=== PATIENT | female | born 1990 | race African-American/Black ===

== ENCOUNTER 2025-03-11 16:58 | Emergency (ER) | payer OTHER, SELFPAY ==
[2025-03-11] VITALS (10 sets, daily range): BP systolic 105–125; BP diastolic 53–77; BMI 25.0
[2025-03-11 17:39] LABS: Hematocrit 24.6 % (37.0-47.0); Hemoglobin 6.8 g/dL (12.0-16.0); Mean Corp Hgb Conc. 27.6 g/dL (33.0-37.0); Mean Corpuscular Volume 73.9 fL (81.0-99.0); Nucleated Red Blood Cells % 0 %; Platelet Count 428 10^3/uL (130-400); Red Cell Dist. Width 18.8 % (11.5-14.5)
[2025-03-11 17:43] LABS: ALT (SGPT) 14 U/L (0-35); AST (SGOT) 20 U/L (14-36); Albumin 4.6 g/dl (3.5-5.0); Alkaline Phosphatase 30 U/L (38-126); Blood Urea Nitrogen 11 mg/dl (7-17); Calcium 9.2 mg/dl (8.4-10.2); Carbon Dioxide 24 mmol/L (22-30); Chloride 106 mmol/L (98-107); Glucose 88 mg/dl (70-99); Potassium 4.6 mmol/L (3.5-5.1); Sodium 139 mmol/L (135-145); Total Protein 8.1 g/dl (6.3-8.2); eGFR > 60.00
--- NOTE | 2025-03-11 18:19 | ED.GENMED ---
History of Present Illness
<Silvia Hernandez MD, Resident - Last Filed: 03/12/25 00:23>
General
Chief Complaint: Abnormal Lab Value
Source: patient
Time Seen by Provider: 03/11/25 17:57
History of Present Illness
History of Present Illness:
34-year-old female with past medical history of asthma presents to the ER for abnormal lab value. She got blood work with her PCP this past to evaluate for ongoing headache, dizziness and shortness of breath with exertion. On Wednesday she
received a phone call that her hemoglobin was 6.2 and she need to come to the ER for further evaluation. She opted not to because she had Halloween plans with her family and came in today. She has a history of heavy periods soaking through 1
tampon every hour. She has required blood transfusion in the past due to the similar issue. Her period finished this past . She endorses a headache, shortness of breath with exertion, and dizziness. She denies any hematemesis, melena,
hematochezia. She denies any fevers, chills, chest pain, heart palpitations, abdominal pain, nausea, vomiting, diarrhea. She was told to take an iron supplement by her PCP.
<Selena Damon MD - Last Filed: 03/11/25 19:25>
General
Exam Limitations: none
Nursing documentation reviewed up to this point in time: agreed with
Past History
<Silvia Hernandez MD, Resident - Last Filed: 03/12/25 00:23>
Past History
ED Past Medical History: Asthma
ED Past Surgical History: Other (Brian zapata )
Social History
Tobacco: Non-smoker
Alcohol: Occasional
Drug: None
Review of Systems
<Silvia Hernandez MD, Resident - Last Filed: 03/12/25 00:23>
Review of Systems
Allergies reviewed?: Yes
Constitutional: Reports no symptoms
EENT: Reports no symptoms
Respiratory: Reports trouble breathing
Cardiac: Reports no symptoms
ABD/GI: Reports no symptoms
: Reports no symptoms
Musculoskeletal: Reports no symptoms
Skin: Reports no symptoms
Neurological: Reports no symptoms
Endocrine: Reports no symptoms
<Selena Damon MD - Last Filed: 03/11/25 19:25>
Review of Systems
All Other Systems: ROS reviewed and negative except as documented in HPI and ROS
Hematologic/Lymphatic: Reports no symptoms
Psychiatric: Reports no symptoms
Phy Exam
<Silvia Hernandez MD, Resident - Last Filed: 03/12/25 00:23>
Physical Exam
Physical Exam:
General: Well-appearing
Head: Atraumatic
Cardiac: Regular S1-S2, no murmurs
Respiratory: Clear breath sounds bilaterally
Abdomen: Soft, nontender, nondistended, normal bowel sounds in all 4 quadrants
Extremities: No peripheral edema
Psych: Calm
General Physical Exam
General Presentation: well appearing
General age: appears stated age
General Skin: warm and dry
General Habitus: normal
General Mental: alert
General Hydration: appears well hydrated
Course
<iSlvia Hernandez MD, Resident - Last Filed: 03/12/25 00:23>
Orders/Labs/Results
Orders:
Orders
03/11/25 17:14
Type And Crossmatch [Type+Screen] Urgent
Complete Blood Count/With Diff Urgent
Comprehensive Metabolic Panel Urgent
03/11/25 18:18
Blood Bank Products [* Blood Bank Products] Urgent
Blood Bank Products: *Packed RBC Leuko (PRBC's
Quantity: 1
Transfuse Today: Yes
Reason: Anemia
Abnormal Lab Results
03/11/25
17:14
RBC 3.33 L 10^6/uL
(4.20-5.40)
Hgb 6.8 L* g/dL
(12.0-16.0)
Hct 24.6 L %
(37.0-47.0)
MCV 73.9 L fL
(81.0-99.0)
MCH 20.4 L pg
(27.0-31.0)
MCHC 27.6 L g/dL
(33.0-37.0)
RDW 18.8 H %
(11.5-14.5)
Plt Count 428 H 10^3/uL
(130-400)
Alkaline Phosphatase 30 L U/L
(38-126)
Crossmatch IS Only See Detail
03/11/25 17:14
03/11/25 17:14
Vital Signs
Initial and Last Documented VS:
Initial Vital Signs
Temp Pulse Resp BP Pulse Ox
98.9 F 77 17 114/53 99
03/11/25 17:08 03/11/25 17:08 03/11/25 17:08 03/11/25 17:08 03/11/25 17:08
Last Documented Vital Signs
Temp Pulse Resp BP Pulse Ox
98.2 F 57 12 117/73 100
03/11/25 22:49 03/11/25 22:49 03/11/25 22:49 03/11/25 22:49 03/11/25 22:49
<Selena Damon MD - Last Filed: 03/11/25 19:25>
Orders/Labs/Results
Orders:
Orders
03/11/25 17:14
Type And Crossmatch [Type+Screen] Urgent
Complete Blood Count/With Diff Urgent
Comprehensive Metabolic Panel Urgent
03/11/25 18:18
Blood Bank Products [* Blood Bank Products] Urgent
Blood Bank Products: *Packed RBC Leuko (PRBC's
Quantity: 1
Transfuse Today: Yes
Reason: Anemia
Abnormal Lab Results
03/11/25
17:14
RBC 3.33 L 10^6/uL
(4.20-5.40)
Hgb 6.8 L* g/dL
(12.0-16.0)
Hct 24.6 L %
(37.0-47.0)
MCV 73.9 L fL
(81.0-99.0)
MCH 20.4 L pg
(27.0-31.0)
MCHC 27.6 L g/dL
(33.0-37.0)
RDW 18.8 H %
(11.5-14.5)
Plt Count 428 H 10^3/uL
(130-400)
Alkaline Phosphatase 30 L U/L
(38-126)
Crossmatch IS Only See Detail
03/11/25 17:14
03/11/25 17:14
Vital Signs
Initial and Last Documented VS:
Initial Vital Signs
Temp Pulse Resp BP Pulse Ox
98.9 F 77 17 114/53 99
03/11/25 17:08 03/11/25 17:08 03/11/25 17:08 03/11/25 17:08 03/11/25 17:08
Last Documented Vital Signs
Temp Pulse Resp BP Pulse Ox
98.2 F 57 12 117/73 100
03/11/25 22:49 03/11/25 22:49 03/11/25 22:49 03/11/25 22:49 03/11/25 22:49
<Silvia Hernandez MD, Resident - Last Filed: 03/12/25 00:23>
MDM/Problems Addressed
Differential Diagnosis Includes:
Anemia, vaginal bleeding, asthma exacerbation
MDM/Problems Addressed:
Hemoglobin today noted to be 6.8. As she is symptomatic with shortness of breath on exertion, dizziness, will transfuse 1 unit today and recommend follow-up with nurse anesthetist for further evaluation of heavy menstrual periods. She may benefit from
TXA during heavy periods to prevent additional loss. Recommend continuation of iron supplement recommended by her PCP.
<Silvia Hernandez MD, Resident - Last Filed: 03/12/25 00:23>
*Pulse Oximetry
SaO2: 100
Oxygen Mode of Delivery: Room air
<Selena Damon MD - Last Filed: 03/11/25 19:25>
*Pulse Oximetry
Patient hypoxic: no
*EKG
Interpreted by ED Provider?: NA
*[employer] Driver Interpretation
Rate: normal
Interpretation: normal
Rhythm: sinus (Sinus tachycardia in the 60s)
*Critical Care Note
Total Time (30-74mins, 75-104mins- exclusive of procedures): Not Applicable
Data Reviewed
Source: patient
<Selena Damon MD - Last Filed: 03/11/25 19:25>
Patient Management
Social determinants of health affecting care: Living situation and Strong social support
Escalation/DeEscalation of care consider admission/obs:
Given patient is symptomatic, we will follow through with transfusing her 1 unit of packed red blood cells. Given that this issue is chronic, patient looks well, and is no longer having vaginal bleeding, we feel patient can be discharged after
blood transfusion for follow-up with gynecology
ED Attending Note
<Silvia Hernandez MD, Resident - Last Filed: 03/12/25 00:23>
-
Portions of this chart may have been created with voice recognition software.� Occasional wrong word or��sound alike� substitutions may have occurred due to the inherent limitations of voice recognition software.
Discharge Plan
Departure
Patient Disposition: Home (Routine Discharge)
Date of Disposition: 03/11/25
Time of Disposition: 22:47
Patient with high blood pressure during this ER visit?: No
Discharge Problem:
Anemia
Instructions: Anemia in adults, possibly from low iron - ED (DC)
Prescriptions:
No Action
No Current Medications
0
Referrals:
Drake Patiño MD [Family Provider, Internal Medicine]
Misti Walters DO [Active, Gynecology]
Stand Alone Forms: Return to Work
Activity Restrictions/Additional Instructions:
Please follow up with OBGYN for further evaluation for heavy menstrual bleeding.
Interventions
Interventions:
*Risk Screen - Suicide Last Done: 03/11/25 17:08
*General Assessment Last Done: 03/11/25 17:08
*Neglect/Abuse Screening Last Done: 03/11/25 17:08
*ED- Fall Risk Assessment Last Done: 03/11/25 17:08
*ED COVID-19 Vaccine History Last Done: 03/11/25 17:08
*ED Influenza Vaccine History Last Done: 03/11/25 17:08
*Nursing Disposition Last Done: 03/11/25 23:11
Discharge Date and Time
Discharge Date/Time: 03/11/25 23:11
Print Language: INDONESIAN
[2025-03-11 19:06] LABS: Normal RBC Morphology No
[2025-03-11 19:09] LABS: Anisocytosis 2+; Hypochromasia 2+; Target Cells 1+
--- NOTE | 2025-03-11 19:44 | EDRN ---
Pt has had a headache and dizziness x 2 weeks. Pt went to her doctor on for these symptoms and was called on Wednesday and told her hgb was 6.2. Pt was instructed to take iron pills. Pt did not come in until today because it was Halloween
and her children were going out and she had to get things set at home for her before she came to the ED. Pt had a headache earlier but says it is gone now. Last day of period was . Pt denies abnormal vaginal bleeding, blood in
stool/dark stool, vomiting, cp, sob, abd pain, n/v, weakness, urinary symptoms.
== END 2025-03-11 23:11 | disposition home or self-care (01) ==
LOC: EMR 16:58
PROVIDERS: Student in an Organized Health Care Education/Training Program; EMERGENCY PHYSICIAN Emergency Medicine; FAMILY PHYSICIAN Internal Medicine
DX: D64.9 Anemia, unspecified (principal); J45.909 Unspecified asthma, uncomplicated
CPT/HCPCS: 99285; 36430; 80053; 85025; 86850; 86900; 86901; 86920; P9016